=== PATIENT | male | born 1935 | race Hispanic/Latino ===

== ENCOUNTER 2020-11-24 08:43 | Outpatient (CLI) | payer MEDICARE ==
--- NOTE | 2020-11-24 11:58 | Vascular Lab Report ---
ULTRASOUND RENAL ARTERY DUPLEX IMAGING INDICATION / CLINICAL INFORMATION: ESSENTIAL HYPERTENSION. COMPARISON: None available. FINDINGS: RIGHT KIDNEY: Size = 10.2 cm. - Echogenicity: Normal - Cortical thickness: Normal. - Hydronephrosis: None. - Cyst / Mass: None. - Stones: None seen.. - Renal resistive indices (RI): 0.7, 0.77, 0.82 (Normal < 0.70) - Renal/aortic ratio (RAR): 1.26 (Normal < 3.5) LEFT KIDNEY: Size = 10.4 cm. - Echogenicity: Normal. - Cortical thickness: Normal. - Hydronephrosis: None. - Cyst / Mass: None. - Stones: None seen.. - Renal resistive indices (RI): 0.76, 0.78, 0.72 (Normal < 0.70) - Renal/aortic ratio (RAR): 1.0 (Normal < 3.5) URINARY BLADDER: No significant abnormality. FREE FLUID: None. ADDITIONAL FINDINGS: None. IMPRESSION 1. No significant abnormality. Mildly elevated resistive indices of the bilateral kidneys. 2. No sonographic evidence for renal artery stenosis. Signer Name: Timothy Cheatham DO Signed: 11/24/2020 11:53 AM Workstation Name: [id number]
== END 2020-11-24 08:44 | disposition home or self-care (01) ==
LOC: VAS 08:43
PROVIDERS: ATTEND Family Medicine
DX: I10 Essential (primary) hypertension (principal)
CPT/HCPCS: 93975